=== PATIENT | male | born 1965 | race African-American/Black ===

== ENCOUNTER 2019-07-26 11:27 | Emergency (ER) | payer MEDICAID, OTHER ==
[~2019-07-26 11:27] MED LIST: AMLO10TA4 PO; CLOP75TA4 PO
== END 2019-07-26 14:02 | disposition left against medical advice (07) ==
LOC: ER 11:27
DX: Z53.21 Procedure and treatment not carried out due to patient leaving prior to being seen by health care provider (principal)

== ENCOUNTER 2019-07-29 11:45 | Emergency (ER) | payer MEDICAID ==
[~2019-07-29] VITALS: Ht 182.9 cm; Wt 73.0 kg
[2019-07-29 12:24] VITALS: BP 108/78
== END 2019-07-29 15:26 | disposition home or self-care (01) ==
LOC: ER 11:45
DX: R05 Cough (principal)
CPT/HCPCS: 71045; 99283